=== PATIENT | female | born 1935 | race Two or more races ===

== ENCOUNTER 2018-04-23 16:53 | Inpatient (IN) | payer OTHER, MEDICAID ==
[~2018-04-23] VITALS: Ht 152.4 cm; Wt 67.1 kg
[2018-04-23] MEDS ORDERED: ASPIRIN 81MG TABLET PO ONE (20:00)
[2018-04-23] MEDS ORDERED: NITROGLYCERIN 0.4MG TABLET SL SL PRN (20:00)
[2018-04-23 20:39] LABS: BASOPHILS % 0.9 % (0.0-2.0); EOSINOPHILS % 1.3 % (0.0-5.0); HEMATOCRIT. 36.7 % (36.0-48.0); HEMOGLOBIN. 12.3 g/dL (12.0-16.0); LYMPHOCYTES % 32.3 % (20.0-50.0); MEAN CORPUSCULAR HEMOGLOBIN 27.1 pg (28.0-32.0); MEAN CORPUSCULAR VOLUME 80.9 fL (81.0-99.0); MEAN PLATELET VOLUME 8.7 fl (7.4-10.4); MONOCYTES % 5.7 % (2.0-8.0); NEUTROPHILS % 59.8 % (40.0-76.0); PLATELET 269 x1000/uL (130-400); RED BLOOD CELL COUNT 4.54 mill/uL (4.2-5.4); RED CELL DISTRIBUTION WIDTH 14.6 % (11.6-14.6)
[2018-04-23 20:42] LABS: CHLORIDE 94 mEq/L (98-107)
[2018-04-23 23:00] VITALS: BP 119/58
[2018-04-23 23:30] VITALS: BP 119/58
[2018-04-24] MEDS ORDERED: MORPHINE SULFATE 4 MG/ML CPJ (NOT FOR IM USE) IV PRN (03:00)
[2018-04-24] MEDS ORDERED: DEXTROSE 50% WATER 50ML SYRINGE IV PRN ×3 (03:00→11:45)
[2018-04-24] MEDS ORDERED: AMLODIPINE 10MG TABLET PO NR (03:00)
[2018-04-24] MEDS ORDERED: LISI40TA4 MT (03:08)
[2018-04-24] MEDS ORDERED: HYDR-2510 MT (03:08)
[2018-04-24] MEDS ORDERED: METO-385 MT (03:10)
[2018-04-24] MEDS ORDERED: ATOR40TA70 MT (03:10)
[2018-04-24] MEDS ORDERED: AMLO10TA80 MT (03:10)
[2018-04-24] MEDS ORDERED: METF-816 MT (03:12)
[2018-04-24] MEDS ORDERED: INSLIS SUBCUT (03:12)
[2018-04-24 04:00] VITALS: BP 136/68
[2018-04-24] MEDS: BLOOD SUGAR DIAGNOSTIC STRIP TEST SCH ×4 (06:08→21:08)
[2018-04-24 08:00] VITALS: BP 120/56
[2018-04-24] MEDS: METFORMIN HCL 500MG TABLET PO SCH ×2 (08:46→17:36)
[2018-04-24] MEDS: HYDROCHLOROTHIAZIDE 25MG TABLET PO SCH (08:46)
[2018-04-24] MEDS: LISINOPRIL 40MG TABLET PO SCH (08:47)
[2018-04-24] MEDS ORDERED: METOPROLOL TARTRATE 50MG TABLET PO SCH (09:00)
[2018-04-24 12:00] VITALS: BP 113/47
[2018-04-24] MEDS: INSULIN LISPRO 100 UNITS/ML SUBCUT SCH ×3 (12:31→21:30)
[2018-04-24] MEDS ORDERED: BLOOD SUGAR DIAGNOSTIC STRIP TEST SCH (12:40)
[2018-04-24 14:05] LABS: T4 FREE 1.16 ng/dL (0.76-1.46)
[2018-04-24 16:00] VITALS: BP 126/54
[2018-04-24] MEDS ORDERED: LISINOPRIL 40MG TABLET PO SCH (17:15)
[2018-04-24 17:34] LABS: CREATINE KINASE 33 IU/L (26-192); CREATINE KINASE MB FRACTION < 1.0 ng/mL (0.5-3.6)
[2018-04-24] MEDS ORDERED: INSULIN LISPRO 100 UNITS/ML SUBCUT SCH (17:40)
[2018-04-24] MEDS: METHYL SALICYLATE/MENTHOL CREAM 85GM TOP SCH (18:30)
[2018-04-24 20:00] VITALS: BP 124/52
[2018-04-24] MEDS ORDERED: ATORVASTATIN CALCIUM 40MG TABLET PO SCH (21:00)
[2018-04-24] MEDS: METOPROLOL TARTRATE 25MG TABLET PO SCH (21:29)
[2018-04-24] MEDS: ATORVASTATIN CALCIUM 40MG TABLET PO SCH (21:29)
[2018-04-25] VITALS: BP 115/53
[2018-04-25 00:01] LABS: CREATINE KINASE 28 IU/L (26-192); CREATINE KINASE MB FRACTION < 1.0 ng/mL (0.5-3.6)
[2018-04-25] MEDS: METHYL SALICYLATE/MENTHOL CREAM 85GM TOP SCH ×4 (01:03→17:37)
[2018-04-25 04:00] VITALS: BP 113/53
[2018-04-25] MEDS: BLOOD SUGAR DIAGNOSTIC STRIP TEST SCH ×4 (05:17→21:09)
[2018-04-25 08:00] VITALS: BP 121/59
[2018-04-25 09:02] LABS: CREATINE KINASE MB FRACTION 1.1 ng/mL (0.5-3.6)
[2018-04-25] MEDS: INSULIN LISPRO 100 UNITS/ML SUBCUT SCH ×4 (09:23→21:16)
[2018-04-25] MEDS: AMLODIPINE 10MG TABLET PO SCH (09:24)
[2018-04-25] MEDS: METFORMIN HCL 500MG TABLET PO SCH ×2 (09:24→17:25)
[2018-04-25] MEDS: METOPROLOL TARTRATE 25MG TABLET PO SCH ×2 (09:25→21:16)
[2018-04-25] MEDS: LISINOPRIL 40MG TABLET PO SCH (09:25)
[2018-04-25] MEDS: HYDROCHLOROTHIAZIDE 25MG TABLET PO SCH (09:25)
[2018-04-25] MEDS ORDERED: REGADENOSON 0.4 MG/5 ML IV ONE (10:45)
[2018-04-25 12:00] VITALS: BP 131/53
[2018-04-25 16:00] VITALS: BP 117/64
[2018-04-25 16:10] LABS: BASOPHILS % 0.8 % (0.0-2.0); EOSINOPHILS % 1.3 % (0.0-5.0); HEMATOCRIT. 33.4 % (36.0-48.0); HEMOGLOBIN. 11.4 g/dL (12.0-16.0); LYMPHOCYTES % 28.1 % (20.0-50.0); MEAN CORPUSCULAR HEMOGLOBIN 27.5 pg (28.0-32.0); MEAN PLATELET VOLUME 8.7 fl (7.4-10.4); MONOCYTES % 7.8 % (2.0-8.0); PLATELET 262 x1000/uL (130-400); RED BLOOD CELL COUNT 4.13 mill/uL (4.2-5.4); RED CELL DISTRIBUTION WIDTH 14.2 % (11.6-14.6)
[2018-04-25 16:16] LABS: CHLORIDE 97 mEq/L (98-107)
[2018-04-25 20:00] VITALS: BP 132/51
[2018-04-25] MEDS: ATORVASTATIN CALCIUM 40MG TABLET PO SCH (21:15)
[2018-04-26] VITALS: BP 111/54
[2018-04-26] MEDS: METHYL SALICYLATE/MENTHOL CREAM 85GM TOP SCH ×3 (00:21→12:30)
[2018-04-26 04:00] VITALS: BP 149/67
[2018-04-26] MEDS: BLOOD SUGAR DIAGNOSTIC STRIP TEST SCH ×3 (04:57→14:22)
[2018-04-26 08:00] VITALS: BP 160/55
[2018-04-26] MEDS: METOPROLOL TARTRATE 25MG TABLET PO SCH (08:43)
[2018-04-26] MEDS: METFORMIN HCL 500MG TABLET PO SCH (08:44)
[2018-04-26] MEDS: LISINOPRIL 40MG TABLET PO SCH (08:44)
[2018-04-26] MEDS: AMLODIPINE 10MG TABLET PO SCH (08:45)
[2018-04-26] MEDS: HYDROCHLOROTHIAZIDE 25MG TABLET PO SCH (08:51)
[2018-04-26] MEDS: INSULIN LISPRO 100 UNITS/ML SUBCUT SCH ×2 (08:53→13:41)
[2018-04-26 10:24] LABS: BASOPHILS % 0.6 % (0.0-2.0); EOSINOPHILS % 1.3 % (0.0-5.0); HEMATOCRIT. 34.8 % (36.0-48.0); HEMOGLOBIN. 11.8 g/dL (12.0-16.0); LYMPHOCYTES % 25.5 % (20.0-50.0); MEAN CORPUSCULAR HEMOGLOBIN 27.3 pg (28.0-32.0); MEAN CORPUSCULAR VOLUME 80.7 fL (81.0-99.0); MEAN PLATELET VOLUME 9.2 fl (7.4-10.4); MONOCYTES % 6.6 % (2.0-8.0); PLATELET 252 x1000/uL (130-400); RED BLOOD CELL COUNT 4.31 mill/uL (4.2-5.4); RED CELL DISTRIBUTION WIDTH 14.1 % (11.6-14.6)
[2018-04-26] MEDS ORDERED: REGADENOSON 0.4 MG/5 ML IV ONE (11:25)
[2018-04-26 12:00] VITALS: BP 129/55
[2018-04-26 14:19] LABS: CHLORIDE 99 mEq/L (98-107)
[2018-04-26 16:00] VITALS: BP 104/50
[2018-04-26 16:09] VITALS: BP 129/55
== END 2018-04-26 17:43 | disposition home or self-care (01) | DRG 392 ==
LOC: ER 16:53 → 7WST 21:39 → EDBEDREQ 21:50 → EDBEDREQTM 21:50 → ENRESERV 22:09
PROVIDERS: ADMIT Family Medicine; ATTEND Family Medicine
DX: K21.9 Gastro-esophageal reflux disease without esophagitis (principal); E87.1 Hypo-osmolality and hyponatremia; I10 Essential (primary) hypertension; M85.80 Other specified disorders of bone density and structure, unspecified site; E78.00 Pure hypercholesterolemia, unspecified; E78.5 Hyperlipidemia, unspecified; Z90.710 Acquired absence of both cervix and uterus; E11.9 Type 2 diabetes mellitus without complications; M25.512 Pain in left shoulder; M54.2 Cervicalgia; R19.7 Diarrhea, unspecified; R79.89 Other specified abnormal findings of blood chemistry; Z79.4 Long term (current) use of insulin; Z79.84 Long term (current) use of oral hypoglycemic drugs; Z79.899 Other long term (current) drug therapy; Z89.9 Acquired absence of limb, unspecified
CPT/HCPCS: 36415; 71045; 72050; 78452; 78582; 80053; 80061; 82550; 82553; 82962; 83036; 83880; 84439; 84443; 84484; 85025; 85379; 93005; 93017; 93306; 99285; A9500; A9558; J1815; J2785

== ENCOUNTER 2018-10-25 14:34 | Emergency (ER) | payer MEDICARE, MEDICAID ==
[~2018-10-25] VITALS: Ht 142.2 cm; Wt 66.0 kg
[~2018-10-25 14:34] MED LIST: AMLO10TA80 MT; ATOR40TA70 MT; HYDR-2510 MT; INSLIS SUBCUT; LISI40TA4 MT; METF-816 MT; METO-385 MT
[2018-10-25] MEDS ORDERED: ONDANSETRON 4MG ODT PO ONE (16:30)
[2018-10-25] MEDS ORDERED: TETANUS, DIPHTHERIA, PERTUSSIS VAC/PF 0.5ML (>7YR OLD) IM ONE (16:30)
[2018-10-25] MEDS ORDERED: ACETAMINOPHEN 325MG TABLET PO ONE (16:30)
[2018-10-25] MEDS ORDERED: LIDOCAINE 1%/EPI 1:100,000 10 ML VIAL IJ ONE (17:00)
[2018-10-25] MEDS ORDERED: BACITRACIN ZINC OINT UDPKT TOP ONE (17:00)
[2018-10-25] MEDS ORDERED: LIDOCAINE HCL/EPINEPHRINE 1%-EPI 1:100,000 20 ML VIAL IJ NR (17:01)
[2018-10-25] MEDS ORDERED: LIDOCAINE HCL/PF 1% 10 MG/ML 5ML VIAL ONE (17:04)
[2018-10-25] MEDS ORDERED: LIDOCAINE HCL/PF 1% 10 MG/ML 5ML VIAL IJ ONE (17:15)
[2018-10-25 18:47] VITALS: BP 138/65
== END 2018-10-25 18:52 | disposition home or self-care (01) ==
LOC: ER 14:34
DX: S01.01XA Laceration without foreign body of scalp, initial encounter (principal); S50.312A Abrasion of left elbow, initial encounter; Y93.89 Activity, other specified; W01.198A Fall on same level from slipping, tripping and stumbling with subsequent striking against other object, initial encounter; Y92.098 Other place in other non-institutional residence as the place of occurrence of the external cause; Z23 Encounter for immunization; I10 Essential (primary) hypertension; E11.9 Type 2 diabetes mellitus without complications
CPT/HCPCS: 12051; 70450; 73080; 82962; 90471; 90715; 99284; J3490; Q0162

== ENCOUNTER 2018-10-31 09:15 | Emergency (ER) | payer MEDICARE, MEDICAID ==
[~2018-10-31] VITALS: Ht 152.4 cm; Wt 75.0 kg
[2018-10-31 09:39] VITALS: BP 159/94
== END 2018-10-31 12:15 | disposition home or self-care (01) ==
LOC: ER 09:15
DX: Z48.02 Encounter for removal of sutures (principal); E11.9 Type 2 diabetes mellitus without complications; I10 Essential (primary) hypertension; Z90.710 Acquired absence of both cervix and uterus; Z79.4 Long term (current) use of insulin; Z79.84 Long term (current) use of oral hypoglycemic drugs; Z79.899 Other long term (current) drug therapy
CPT/HCPCS: 99281

== ENCOUNTER 2019-11-02 23:21 | Inpatient (IN) | payer MEDICARE, OTHER ==
[~2019-11-02] VITALS: Ht 149.9 cm; Wt 65.9 kg
[2019-11-02] MEDS ORDERED: NITROGLYCERIN 0.4MG TABLET SL SL PRN (23:45)
[2019-11-03] VITALS (10 sets, daily range): BP systolic 120–155; BP diastolic 51–88
[2019-11-03 00:07] LABS: BASOPHILS % 0.8 % (0.0-2.0); EOSINOPHILS % 2.2 % (0.0-5.0); HEMATOCRIT. 37.8 % (36.0-48.0); HEMOGLOBIN. 12.9 g/dL (12.0-16.0); LYMPHOCYTES % 29.6 % (20.0-50.0); MEAN CORPUSCULAR HEMOGLOBIN 27.5 pg (28.0-32.0); MEAN CORPUSCULAR VOLUME 80.9 fL (81.0-99.0); MEAN PLATELET VOLUME 8.4 fl (7.4-10.4); MONOCYTES % 7.1 % (2.0-8.0); NEUTROPHILS % 60.3 % (40.0-76.0); PLATELET 289 x1000/uL (130-400); RED BLOOD CELL COUNT 4.68 mill/uL (4.2-5.4); RED CELL DISTRIBUTION WIDTH 15.2 % (11.6-14.6)
[2019-11-03 00:10] LABS: CHLORIDE 98 mEq/L (98-107)
[2019-11-03] MEDS ORDERED: DEXTROSE 50% WATER 50ML SYRINGE IV PRN (10:45)
[2019-11-03] MEDS ORDERED: ONDANSETRON HCL 4MG/2ML INJ IV PRN (10:45)
[2019-11-03] MEDS ORDERED: ACETAMINOPHEN 325MG TABLET PO PRN (10:45)
[2019-11-03] MEDS: BLOOD SUGAR DIAGNOSTIC STRIP TEST SCH ×3 (11:54→20:59)
[2019-11-03] MEDS: ENOXAPARIN 30MG/0.3ML SYR SUBCUT SCH (11:57)
[2019-11-03] MEDS: INSULIN LISPRO 100 UNITS/ML SUBCUT SCH ×3 (12:55→21:02)
[2019-11-03] MEDS ORDERED: REGADENOSON 0.4 MG/5 ML IV ONE (13:00)
[2019-11-03] MEDS ORDERED: FUROSEMIDE 20MG/2ML VIAL IVP NR (13:00)
[2019-11-03] MEDS ORDERED: CLONIDINE 0.1MG TABLET PO PRN (13:15)
[2019-11-03 13:33] LABS: LDL CHOLESTEROL 118 mg/dL (5-100)
[2019-11-03 13:36] LABS: HDL CHOLESTEROL 37 mg/dL (40-59)
[2019-11-03] MEDS: ATORVASTATIN CALCIUM 40MG TABLET PO SCH (13:49)
[2019-11-03] MEDS: AMLODIPINE 10MG TABLET PO SCH (13:49)
[2019-11-03] MEDS: LISINOPRIL 40MG TABLET PO SCH (13:49)
[2019-11-03] MEDS: METOPROLOL TARTRATE 50MG TABLET PO SCH ×2 (13:50→22:48)
[2019-11-04] VITALS (8 sets, daily range): BP systolic 100–133; BP diastolic 41–65
[2019-11-04] MEDS: BLOOD SUGAR DIAGNOSTIC STRIP TEST SCH ×2 (06:07→11:50)
[2019-11-04] MEDS: INSULIN LISPRO 100 UNITS/ML SUBCUT SCH ×2 (07:20→13:12)
[2019-11-04] MEDS ORDERED: REGADENOSON 0.4 MG/5 ML IV NR (08:45)
[2019-11-04] MEDS ORDERED: ASPIRIN 81MG TABLET PO SCH (09:00)
[2019-11-04] MEDS: ATORVASTATIN CALCIUM 40MG TABLET PO SCH (09:06)
[2019-11-04] MEDS: AMLODIPINE 10MG TABLET PO SCH (09:06)
[2019-11-04] MEDS: LISINOPRIL 40MG TABLET PO SCH (09:07)
[2019-11-04] MEDS ORDERED: REGADENOSON 0.4 MG/5 ML IV ONE (10:55)
[2019-11-04] MEDS: METOPROLOL TARTRATE 50MG TABLET PO SCH (13:11)
[2019-11-04] MEDS: ENOXAPARIN 30MG/0.3ML SYR SUBCUT SCH (13:11)
== END 2019-11-04 15:58 | disposition home or self-care (01) | DRG 206 ==
LOC: ER 23:34 → 3WST 11-03 01:40 → ENRESERV 11-03 10:09
PROVIDERS: ADMIT Internal Medicine; ATTEND Internal Medicine
DX: M94.0 Chondrocostal junction syndrome [Tietze] (principal); E87.1 Hypo-osmolality and hyponatremia; E78.5 Hyperlipidemia, unspecified; E11.9 Type 2 diabetes mellitus without complications; I16.0 Hypertensive urgency; I10 Essential (primary) hypertension; E78.00 Pure hypercholesterolemia, unspecified; Z90.710 Acquired absence of both cervix and uterus; Z79.899 Other long term (current) drug therapy; Z79.84 Long term (current) use of oral hypoglycemic drugs
CPT/HCPCS: 36415; 71045; 78452; 80053; 80061; 82962; 83036; 83880; 84443; 84484; 85025; 93005; 93017; 93306; 99285; A9500; J1650; J1815; J2785

== ENCOUNTER 2019-12-03 08:13 | Inpatient (IN) | payer MEDICARE ==
[~2019-12-03] VITALS: Ht 149.9 cm; Wt 67.3 kg
[2019-12-03] MEDS ORDERED: KETOROLAC 30MG/ML VIAL IV STA (09:18)
[2019-12-03 09:41] LABS: BASOPHILS % 1.4 % (0.0-2.0); EOSINOPHILS % 1.2 % (0.0-5.0); HEMATOCRIT. 36.9 % (36.0-48.0); HEMOGLOBIN. 12.3 g/dL (12.0-16.0); LYMPHOCYTES % 20.8 % (20.0-50.0); MEAN CORPUSCULAR HEMOGLOBIN 27.3 pg (28.0-32.0); MEAN CORPUSCULAR VOLUME 81.8 fL (81.0-99.0); MEAN PLATELET VOLUME 8.4 fl (7.4-10.4); MONOCYTES % 5.9 % (2.0-8.0); NEUTROPHILS % 70.7 % (40.0-76.0); PLATELET 285 x1000/uL (130-400); RED BLOOD CELL COUNT 4.51 mill/uL (4.2-5.4); RED CELL DISTRIBUTION WIDTH 14.1 % (11.6-14.6)
[2019-12-03 09:46] LABS: CHLORIDE 95 mEq/L (98-107)
[2019-12-03] MEDS ORDERED: LEVOFLOXACIN 750MG PREMIX 150 ML IV ONE (10:15)
[2019-12-03] MEDS ORDERED: PNEUMOCOCCAL 23-VAL P-SAC VAC 0.5 ML IM ONE (15:45)
[2019-12-03 16:32] VITALS: BP 143/69
[2019-12-03 18:00] VITALS: BP 145/69
[2019-12-03 20:02] VITALS: BP 143/66
[2019-12-03 20:22] VITALS: BP 143/66
== END 2019-12-03 21:03 | disposition home or self-care (01) | DRG 638 ==
LOC: ER 08:13 → OBSVTOIN 12:02 → INTOOBSV 12:02 → MICUSO 12:02 → 3WST 16:22
PROVIDERS: ADMIT Internal Medicine; ATTEND Internal Medicine
DX: E11.65 Type 2 diabetes mellitus with hyperglycemia (principal); E87.1 Hypo-osmolality and hyponatremia; R79.89 Other specified abnormal findings of blood chemistry; I10 Essential (primary) hypertension; R51 Headache; E78.5 Hyperlipidemia, unspecified; Z90.710 Acquired absence of both cervix and uterus; Z79.899 Other long term (current) drug therapy
CPT/HCPCS: 36415; 71045; 80053; 83880; 84484; 85025; 93005; G0378; J1885; J1956

== ENCOUNTER 2021-01-27 03:31 | Inpatient (IN) | payer BC, MEDICARE ==
[~2021-01-27] VITALS: Ht 160 cm; Wt 68.9 kg
[~2021-01-27 03:31] MED LIST changes: -HYDR-2510 MT; +LISI40TA13 MT; -LISI40TA4 MT; -METF-816 MT; +METF-874 MT
[2021-01-27] MEDS ORDERED: NITROGLYCERIN OINT 1GM/INCH UDPKT TD ONE (04:15)
[2021-01-27] MEDS ORDERED: ASPIRIN 81MG TABLET PO ONE (04:15)
[2021-01-27 04:31] LABS: BASOPHILS % 1.3 % (0.0-2.0); EOSINOPHILS % 1.9 % (0.0-5.0); HEMATOCRIT. 37.9 % (36.0-48.0); HEMOGLOBIN. 12.9 g/dL (12.0-16.0); LYMPHOCYTES % 21.6 % (20.0-50.0); MEAN CORPUSCULAR HEMOGLOBIN 27.6 pg (28.0-32.0); MEAN CORPUSCULAR VOLUME 81.3 fL (81.0-99.0); MEAN PLATELET VOLUME 7.8 fl (7.4-10.4); MONOCYTES % 7.8 % (2.0-8.0); NEUTROPHILS % 67.4 % (40.0-76.0); PLATELET 441 x1000/uL (130-400); RED BLOOD CELL COUNT 4.66 mill/uL (4.2-5.4); RED CELL DISTRIBUTION WIDTH 15.5 % (11.6-14.6)
[2021-01-27 04:35] LABS: CHLORIDE 95 mEq/L (98-107)
[2021-01-27 04:38] LABS: INR 0.9; PROTHROMBIN TIME 9.9 sec (9.6-11.0)
[2021-01-27] MEDS ORDERED: SODIUM POLYSTYRENE SULFONATE 15 G/60 ML BOT PO SCH (05:15)
[2021-01-27] MEDS ORDERED: SODIUM CHLORIDE 0.9% 250 ML IV ONE (05:15)
[2021-01-27] MEDS ORDERED: INSULIN REGULAR (HUMULIN R) 300UNITS/3ML VIAL SUBCUT NR (07:45)
[2021-01-27] MEDS ORDERED: DIPHENHYDRAMINE 50MG/ML VIAL IV PRN (08:30)
[2021-01-27] MEDS ORDERED: ONDANSETRON HCL 4MG/2ML INJ IV PRN (08:30)
[2021-01-27] MEDS ORDERED: NALOXONE HCL 0.4MG/ML VIAL IV PRN (08:30)
[2021-01-27] MEDS ORDERED: ACETAMINOPHEN 325MG TABLET PO PRN (08:30)
[2021-01-27] MEDS: CLONIDINE 0.1MG TABLET PO PRN ×2 (11:28→17:39)
[2021-01-27 16:00] VITALS: BP 181/70
[2021-01-27 17:05] VITALS: BP 181/70
[2021-01-27] MEDS ORDERED: DEXTROSE 50% WATER 50ML SYRINGE IV PRN (18:45)
[2021-01-27 20:00] VITALS: BP 149/52
[2021-01-27] MEDS: BLOOD SUGAR DIAGNOSTIC STRIP TEST SCH (21:10)
[2021-01-27] MEDS: INSULIN LISPRO 100 UNITS/ML SUBCUT SCH (21:10)
[2021-01-27] MEDS: MORPHINE SULFATE 2 MG/ML CPJ (NOT FOR IM USE) IV PRN (23:04)
[2021-01-28] VITALS: BP 181/73
[2021-01-28] MEDS: CLONIDINE 0.1MG TABLET PO PRN ×2 (00:59→09:01)
[2021-01-28 04:00] VITALS: BP 152/91
[2021-01-28] MEDS: MORPHINE SULFATE 2 MG/ML CPJ (NOT FOR IM USE) IV PRN ×2 (05:40→20:40)
[2021-01-28] MEDS: BLOOD SUGAR DIAGNOSTIC STRIP TEST SCH ×4 (06:02→21:53)
[2021-01-28] MEDS: INSULIN LISPRO 100 UNITS/ML SUBCUT SCH ×4 (06:09→22:03)
[2021-01-28 06:41] LABS: BASOPHILS % 1.3 % (0.0-2.0); EOSINOPHILS % 1.2 % (0.0-5.0); MEAN CORPUSCULAR HEMOGLOBIN 26.9 pg (28.0-32.0); MEAN CORPUSCULAR VOLUME 80.5 fL (81.0-99.0); MEAN PLATELET VOLUME 8.1 fl (7.4-10.4); MONOCYTES % 5.3 % (2.0-8.0); NEUTROPHILS % 68.2 % (40.0-76.0); PLATELET 466 x1000/uL (130-400); RED BLOOD CELL COUNT 4.47 mill/uL (4.2-5.4); RED CELL DISTRIBUTION WIDTH 15.7 % (11.6-14.6)
[2021-01-28 07:45] LABS: CHLORIDE 102 mEq/L (98-107)
[2021-01-28 07:52] LABS: LDL CHOLESTEROL 89 mg/dL (5-100)
[2021-01-28 07:53] LABS: HDL CHOLESTEROL 33 mg/dL (40-59)
[2021-01-28 08:00] VITALS: BP 173/64
[2021-01-28] MEDS: HYDROCODONE/ACETAMINOPHEN 5/325MG TABLET PO PRN ×3 (09:03→22:01)
[2021-01-28] MEDS: LISINOPRIL 40MG TABLET PO SCH (11:11)
[2021-01-28] MEDS: AMLODIPINE 10MG TABLET PO SCH (11:11)
[2021-01-28] MEDS: ASPIRIN 81MG TABLET PO SCH (11:13)
[2021-01-28 12:00] VITALS: BP 121/46
[2021-01-28 16:00] VITALS: BP 135/55
[2021-01-28] MEDS ORDERED: KETOROLAC 30MG/ML VIAL IV PRN (17:45)
[2021-01-28 20:00] VITALS: BP 131/55
[2021-01-28] MEDS ORDERED: ATORVASTATIN CALCIUM 20MG TABLET PO SCH (21:00)
[2021-01-28] MEDS: METOPROLOL TARTRATE 25MG TABLET PO SCH (22:01)
[2021-01-28] MEDS: INSULIN GLARGINE UD 100 UNITS/ML SYR SUBCUT SCH (22:04)
[2021-01-29] VITALS: BP 133/52
[2021-01-29 04:00] VITALS: BP 131/50
[2021-01-29] MEDS: BLOOD SUGAR DIAGNOSTIC STRIP TEST SCH ×2 (06:08→11:40)
[2021-01-29] MEDS: INSULIN LISPRO 100 UNITS/ML SUBCUT SCH ×2 (06:10→13:37)
[2021-01-29 08:00] VITALS: BP 170/59
[2021-01-29] MEDS ORDERED: ASPI-1160 PO (10:45)
[2021-01-29] MEDS ORDERED: INSU100I28 SQ (10:45)
[2021-01-29] MEDS: ASPIRIN 81MG TABLET PO SCH (11:30)
[2021-01-29] MEDS: LISINOPRIL 40MG TABLET PO SCH (11:30)
[2021-01-29] MEDS: AMLODIPINE 10MG TABLET PO SCH (11:30)
[2021-01-29] MEDS: METOPROLOL TARTRATE 25MG TABLET PO SCH (11:30)
[2021-01-29] MEDS: INSULIN GLARGINE UD 100 UNITS/ML SYR SUBCUT SCH (11:31)
[2021-01-29 11:58] VITALS: BP 170/59
[2021-01-29 12:00] VITALS: BP 166/57
== END 2021-01-29 16:30 | disposition home or self-care (01) | DRG 206 ==
LOC: ER 03:31 → OBSVTOIN 06:15 → 7EST 06:15 → ENRESERV 14:38
PROVIDERS: ADMIT Internal Medicine; ATTEND Internal Medicine
DX: M94.0 Chondrocostal junction syndrome [Tietze] (principal); E87.1 Hypo-osmolality and hyponatremia; M40.209 Unspecified kyphosis, site unspecified; E11.65 Type 2 diabetes mellitus with hyperglycemia; M25.511 Pain in right shoulder; I50.9 Heart failure, unspecified; E78.5 Hyperlipidemia, unspecified; E89.0 Postprocedural hypothyroidism; E87.5 Hyperkalemia; I27.20 Pulmonary hypertension, unspecified; M54.9 Dorsalgia, unspecified; I08.1 Rheumatic disorders of both mitral and tricuspid valves; E11.51 Type 2 diabetes mellitus with diabetic peripheral angiopathy without gangrene; I11.0 Hypertensive heart disease with heart failure; Z79.899 Other long term (current) drug therapy; Z90.710 Acquired absence of both cervix and uterus; Z79.1 Long term (current) use of non-steroidal anti-inflammatories (NSAID); Z79.4 Long term (current) use of insulin; Z89.421 Acquired absence of other right toe(s)
CPT/HCPCS: 36415; 71045; 80053; 80061; 82962; 83036; 83880; 84132; 84443; 84484; 85025; 93005; 93306; 93970; 99285; C1893; J1200; J1815; J1885; J2270; J7040

== ENCOUNTER 2022-09-07 23:00 | Emergency (ER) | payer BC ==
[~2022-09-07] VITALS: Ht 142.2 cm; Wt 67.7 kg
[~2022-09-07 23:00] MED LIST changes: +ASPI-1160 PO; -INSLIS SUBCUT; +INSU100I28 SQ
[2022-09-07 23:03] VITALS: BP 139/87
[2022-09-08 04:26] LABS: BASOPHILS % 0.8 % (0.0-2.0); EOSINOPHILS % 0.5 % (0.0-5.0); HEMATOCRIT. 39.8 % (36.0-48.0); HEMOGLOBIN. 13.2 g/dL (12.0-16.0); LYMPHOCYTES % 21.4 % (20.0-50.0); MEAN CORPUSCULAR HEMOGLOBIN 26.5 pg (28.0-32.0); MEAN CORPUSCULAR VOLUME 80.1 fL (81.0-99.0); MEAN PLATELET VOLUME 9.1 fl (7.4-10.4); MONOCYTES % 7.5 % (2.0-8.0); NEUTROPHILS % 69.8 % (40.0-76.0); PLATELET 224 x1000/uL (130-400); RED BLOOD CELL COUNT 4.96 mill/uL (4.2-5.4); RED CELL DISTRIBUTION WIDTH 14.4 % (11.6-14.6)
[2022-09-08 04:40] LABS: CHLORIDE 105 mEq/L (98-107)
== END 2022-09-08 08:19 | disposition home or self-care (01) ==
LOC: ER 23:00
DX: R07.89 Other chest pain (principal); M79.672 Pain in left foot; M79.605 Pain in left leg; M79.89 Other specified soft tissue disorders; R00.0 Tachycardia, unspecified; R94.31 Abnormal electrocardiogram [ECG] [EKG]; I10 Essential (primary) hypertension; E11.9 Type 2 diabetes mellitus without complications; Z89.421 Acquired absence of other right toe(s)
CPT/HCPCS: 36415; 71045; 80053; 82962; 83880; 84484; 85025; 93005; 93970; 99285